=== PATIENT | female | born 1940 ===

== ENCOUNTER 2020-11-19 19:45 | Outpatient (CLI) | payer MEDICARE, OTHER | END 2020-11-19 19:46 | disposition home or self-care (01) | LOC: BURMANOR 19:45 | PROVIDERS: ATTEND Family Medicine | DX: R19.7 Diarrhea, unspecified (principal) | CPT/HCPCS: 83630; 87324; 87449 ==

== ENCOUNTER 2021-11-15 21:16 | Outpatient (CLI) | payer MEDICARE ==
[2021-11-15 22:01] LABS: Bilirubin Negative (Negative); Blood, Urine Large (Negative); Clarity Clear (Clear); Glucose, Urine (Dipstick) Negative (Negative); Ketone, Urine Negative (Negative); Leukocyte Small (Negative); Nitrite Negative (Negative); Protein, Urine (Dipstick) 30 mg/dL (Neg-Trace); Specific Gravity, Urine Greater/Equal 1.030 (1.005-1.030); Urobilinogen 0.2 mg/dL (Less than 2); pH, Urine 5.5 (5.0-9.0)
== END 2021-11-15 21:17 | disposition home or self-care (01) ==
LOC: BURMANOR 21:16
PROVIDERS: ATTEND Family Medicine
DX: N39.0 Urinary tract infection, site not specified (principal)
CPT/HCPCS: 81003; 87086